=== PATIENT | female | born 1960 | race African-American/Black ===

== ENCOUNTER 2023-05-29 08:13 | Emergency (ER) | payer MEDICAID ==
[~2023-05-29] VITALS: Ht 160 cm; Wt 80.9 kg
[2023-05-29] MEDS ORDERED: IBUPROFEN 800 MG TAB PO ONE (09:15)
[2023-05-29] MEDS ORDERED: cefTRIAXone SOD 1,000 MG VL IM ONE (09:15)
[2023-05-29 09:34] VITALS: BP 176/93; PULSE 76; RESP 16; TEMP 96.9; O2SAT 97
[2023-05-29] MEDS ORDERED: CEPH500C PO (09:41)
[2023-05-29] MEDS ORDERED: IBUP-1456 PO (09:41)
== END 2023-05-29 09:44 | disposition home or self-care (01) ==
LOC: ER 08:13
DX: K02.9 Dental caries, unspecified (principal); F17.210 Nicotine dependence, cigarettes, uncomplicated; Z79.1 Long term (current) use of non-steroidal anti-inflammatories (NSAID); Z79.899 Other long term (current) drug therapy
CPT/HCPCS: 96372; 99283; J0696